=== PATIENT | female | born 1985 | race Caucasian/White ===

== ENCOUNTER 2017-12-08 03:26 | Emergency (ER) | payer BC ==
[2017-12-08] MEDS ORDERED: Ondansetron 4 MG Tab.DIS PO ONE (03:44)
--- NOTE | 2017-12-08 03:44 | EDM.PDOC ---
ED HPI GENERAL MEDICAL PROBLEM - General Chief Complaint: Gastrointestinal Problem Stated Complaint: VOMITING, NOT ABLE TO EAT OR DRINK Time Seen by Provider: 12/08/17 03:43 Source of Information: Reports: Patient History Limitations: Reports: No Limitations - History of Present Illness INITIAL COMMENTS - FREE TEXT/NARRATIVE: HISTORY AND PHYSICAL: History of present illness: 32-year-old female presented emergency department chief complaint of nausea and vomiting with associated headache. Patient states that 3 days ago, Wednesday 12/06, she woke with a headache that seemed to last throughout the day. She felt extremely tired throughout the day. Denies any fever but overall just felt exhausted. This continued up until today where she began to have some nausea with vomiting. States that she's vomited multiple times with greenish yellow vomitus. She reports mild fever maximum temp 100. She denies any nasal congestion, cough, diarrhea, abdominal pain, dysuria, hematuria or other signs of systemic infection. Patient does take tramadol on a daily basis for chronic left foot pain. 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 Dr. Rodriguez prescribes the Tramadol for this which she takes up to 300 mg a day when she is working. She also sees Dr. Grant approximately every 2 weeks for her foot issues. Patient currently denies any chest pain, palpitations, shortness breath, syncopal episodes, or focal neurologic deficits. Review of systems: As per history of present illness and below otherwise all systems reviewed and negative. Past medical history: As per history of present illness and as reviewed below otherwise noncontributory. Surgical history: As per history of present illness and as reviewed below otherwise noncontributory. Social history: No reported history of drug or alcohol abuse. Family history: As per history of present illness and as reviewed below otherwise noncontributory. Physical exam: HEENT: Atraumatic, normocephalic, pupils reactive, negative for conjunctival pallor or scleral icterus, mucous membranes moist, throat clear, neck supple, nontender, trachea midline. Lungs: Clear to auscultation, breath sounds equal bilaterally, chest nontender. Heart: S1S2, regular, negative for clicks, rubs, or JVD. Abdomen: Soft, nondistended, nontender. Negative for masses or hepatosplenomegaly. Negative for costovertebral tenderness. Pelvis: Stable nontender. Genitourinary: Deferred. Rectal: Deferred. Extremities: Atraumatic, negative for cords or calf pain. Neurovascular unremarkable. Neuro: Awake, alert, oriented. Cranial nerves II through XII unremarkable. Cerebellum unremarkable. Motor and sensory unremarkable throughout. Exam nonfocal. Diagnostics: Rapid Strep, Influenza Therapeutics: [Zofran 4 mg ODT, Toradol 60 mg IM x1] Impression: Viral gastroenteritis Plan: Patient's felt much improved after 4 mg of Zofran ODT and Toradol 60 mg IM 1. She remained afebrile throughout her stay and was discharged in good condition with a prescription for Zofran ODT 4 mg by mouth every 6 hours #12. She was instructed to follow-up with her primary care provider Dr. Rodriguez and return to the emergency department if she had a new or worsening symptoms. Left Lower Back Pain Score (Numeric/FACES): 9 - Related Data Allergies Allergy/AdvReac Type Severity Reaction Status Date / Time coconut oil Allergy Hives Verified 12/08/17 03:34 marijuana Allergy Anaphylactic Verified 12/08/17 03:34 Shock Home Meds: Home Meds traMADol [Ultram] 50 mg Q4HR 12/08/17 [History] Past Medical History [employer] History: Reports: - Infectious Disease History Infectious Disease History: Reports: Chicken Pox - Past Surgical History HEENT Surgical History: Reports: Naso-Sinus Surgery, Tonsillectomy, Other (See Below) Other HEENT Surgeries/Procedures: throat reconstruction Female Surgical History: Reports: Section Musculoskeletal Surgical History: Reports: Other (See Below) Other Musculoskeletal Surgeries/Procedures:: left foot surgery x2 Social & Family History - Family History Family Medical History: Noncontributory - Tobacco Use Smoking Status *Q: Never Smoker Second Hand Smoke Exposure: No - Caffeine Use Caffeine Use: Reports: Soda - Recreational Drug Use Recreational Drug Use: No ED ROS GENERAL - Review of Systems Review Of Systems: See Below ED EXAM, GENERAL - Physical Exam Exam: See Below Course - Vital Signs Last Recorded V/S: Last Vital Signs Temp 96.8 F 12/08/17 03:31 Pulse 112 H 12/08/17 04:11 Resp 16 12/08/17 04:11 BP 119/77 12/08/17 04:11 Pulse Ox 100 12/08/17 04:11 - Orders/Labs/Meds Orders: Active Orders 24 hr Category Date Time Status CULTURE STREP A CONFIRMATION [RM] Stat Lab 12/08/17 03:45 Results INFLUENZA A+B AG SCREEN [RM] Stat Lab 12/08/17 03:45 Ordered STREP SCRN A RAPID W CULT CONF [RM] Stat Lab 12/08/17 03:45 Ordered Meds: Medications Discontinued Medications Generic Name Dose Route Start Last Admin Trade Name Sara PRN Reason Stop Dose Admin Ketorolac Tromethamine 60 mg 12/08/17 03:54 12/08/17 04:02 Toradol IM 12/08/17 03:55 60 mg ONETIME ONE Administration Ondansetron HCl 4 mg 12/08/17 03:44 12/08/17 03:51 Zofran Odt PO 12/08/17 03:45 4 mg ONETIME ONE Administration Departure - Departure Time of Disposition: 04:14 Disposition: Home, Self-Care 01 Condition: Good Clinical Impression: Viral upper respiratory tract infection - Discharge Information Referrals: Brandon Rodriguez MD [Primary Care Provider] - Forms: ED Department Discharge Additional Instructions: My general discharge The following information is given to patients seen in the emergency department who are being discharged to home. This information is to outline your options for follow-up care. We provide all patients seen in our emergency department with a follow-up referral. The need for follow-up, as well as the timing and circumstances, are variable depending upon the specifics of your emergency department visit. If you don't have a primary care physician on staff, we will provide you with a referral. We always advise you to contact your personal physician following an emergency department visit to inform them of the circumstance of the visit and for follow-up with them and/or the need for any referrals to a consulting specialist. The emergency department will also refer you to a specialist when appropriate. This referral assures that you have the opportunity for follow-up care with a specialist. All of these measure are taken in an effort to provide you with optimal care, which includes your follow-up. Under all circumstances we always encourage you to contact your private physician who remains a resource for coordinating your care. When calling for follow-up care, please make the office aware that this follow-up is from your recent emergency room visit. If for any reason you are refused follow-up, please contact the [facility] Emergency Department at and asked to speak to the emergency department charge nurse. [address] [address] - My Orders Last 24 Hours: My Active Orders 12/08/17 03:45 CULTURE STREP A CONFIRMATION [RM] Stat INFLUENZA A+B AG SCREEN [RM] Stat STREP SCRN A RAPID W CULT CONF [RM] Stat - Assessment/Plan Last 24 Hours: My Active Orders 12/08/17 03:45 CULTURE STREP A CONFIRMATION [RM] Stat INFLUENZA A+B AG SCREEN [RM] Stat STREP SCRN A RAPID W CULT CONF [] Stat
[2017-12-08] MEDS ORDERED: Ketorolac 60 MG/2 ML SDV IM ONE (03:54)
== END 2017-12-08 04:20 | disposition home or self-care (01) ==
LOC: MW.ED 03:26
DX: A08.4 Viral intestinal infection, unspecified (principal); J06.9 Acute upper respiratory infection, unspecified; Z88.8 Allergy status to other drugs, medicaments and biological substances
CPT/HCPCS: 87081; 87804; 87880; 96372; 99284; A9270; J1885

== ENCOUNTER 2018-03-02 01:05 | Emergency (ER) | payer BC ==
--- NOTE | 2018-03-02 01:16 | EDM.PDOC ---
ED HPI GENERAL MEDICAL PROBLEM - General Chief Complaint: Flank Pain Stated Complaint: LOWER RIGHT BACK PAIN, ABDOMINAL PAIN Time Seen by Provider: 03/02/18 01:14 - History of Present Illness INITIAL COMMENTS - FREE TEXT/NARRATIVE: HISTORY AND PHYSICAL: History of present illness: Patient is a 32-year-old female sensory concern of right flank pain she states she's had this 1 day states she had a tactile fever yesterday she denies urinary frequency hesitancy or discomfort denies trauma denies numbness weakness incontinence or retention of bowel or bladder Review of systems: As per history of present illness and below otherwise all systems reviewed and negative. Past medical history: As per history of present illness and as reviewed below otherwise noncontributory. Surgical history: As per history of present illness and as reviewed below otherwise noncontributory. Social history: No reported history of drug or alcohol abuse. Family history: As per history of present illness and as reviewed below otherwise noncontributory. Physical exam: HEENT: Atraumatic, normocephalic, pupils reactive, negative for conjunctival pallor or scleral icterus, mucous membranes moist, throat clear, neck supple, nontender, trachea midline. Lungs: Clear to auscultation, breath sounds equal bilaterally, chest nontender. Heart: S1S2, regular, negative for clicks, rubs, or JVD. Abdomen: Soft, nondistended, nontender. Negative for masses or hepatosplenomegaly. Negative for costovertebral tenderness. Pelvis: Stable nontender. Genitourinary: Deferred. Rectal: Deferred. Extremities: Atraumatic, negative for cords or calf pain. Neurovascular unremarkable. Neuro: Awake, alert, oriented. Cranial nerves II through XII unremarkable. Cerebellum unremarkable. Motor and sensory unremarkable throughout. Exam nonfocal. Diagnostics: CBC CMP UA hCG Therapeutics: None Impression: 1 right flank pain Definitive disposition and diagnosis as appropriate pending reevaluation and review of above. - Related Data Allergies Allergy/AdvReac Type Severity Reaction Status Date / Time coconut oil Allergy Hives Verified 12/08/17 03:34 marijuana Allergy Anaphylactic Verified 12/08/17 03:34 Shock Home Meds: Home Meds traMADol [Ultram] 50 mg PO Q4HR PRN 12/08/17 [History] Pregabalin [Lyrica] 100 mg PO BID 03/02/18 [History] Past Medical History [employer] History: Reports: - Infectious Disease History Infectious Disease History: Reports: Chicken Pox - Past Surgical History HEENT Surgical History: Reports: Naso-Sinus Surgery, Tonsillectomy, Other (See Below) Other HEENT Surgeries/Procedures: throat reconstruction Female Surgical History: Reports: Section Musculoskeletal Surgical History: Reports: Other (See Below) Other Musculoskeletal Surgeries/Procedures:: left foot surgery x2 Social & Family History - Family History Family Medical History: Noncontributory - Caffeine Use Caffeine Use: Reports: Soda ED ROS GENERAL - Review of Systems Review Of Systems: ROS reveals no pertinent complaints other than HPI. ED EXAM, GENERAL - Physical Exam Exam: See Below (See dictation) Course - Vital Signs Last Recorded V/S: Last Vital Signs Temp 36.2 C 03/02/18 01:13 Pulse 122 H 03/02/18 01:13 Resp 17 03/02/18 01:13 BP 108/73 03/02/18 01:13 Pulse Ox 97 03/02/18 01:13 - Orders/Labs/Meds Orders: Active Orders 24 hr Category Date Time Status Abdomen Pelvis wo Cont [CT] Stat Exams 03/02/18 02:02 Ordered CULTURE URINE [RM] Stat Lab 03/02/18 03:20 Ordered HCG QUALITATIVE,URINE [URCHEM] Stat Lab 03/02/18 01:19 Ordered UA W/MICROSCOPIC [URIN] Stat Lab 03/02/18 01:19 Ordered Labs: Laboratory Tests 03/02/18 03/02/18 03/02/18 Range/Units 01:19 01:19 01:30 WBC 16.07 H (4.0-11.0) K/uL RBC 4.91 (4.30-5.90) M/uL Hgb 14.0 (12.0-16.0) g/dL Hct 41.0 (36.0-46.0) % MCV 83.5 (80.0-98.0) fL MCH 28.5 (27.0-32.0) pg MCHC 34.1 (31.0-37.0) g/dL RDW Std Deviation 40.8 (28.0-62.0) fl RDW Coeff of Guerline 14 (11.0-15.0) % Plt Count 280 (150-400) K/uL MPV 10.80 (7.40-12.00) fL Neut % (Auto) 79.3 (48.0-80.0) % Lymph % (Auto) 9.3 L (16.0-40.0) % [place] % (Auto) 11.3 (0.0-15.0) % Eos % (Auto) 0.0 (0.0-7.0) % Baso % (Auto) 0.1 (0.0-1.5) % Neut # (Auto) 12.7 H (1.4-5.7) K/uL Lymph # (Auto) 1.5 (0.6-2.4) K/uL [place] # (Auto) 1.8 H (0.0-0.8) K/uL Eos # (Auto) 0.0 (0.0-0.7) K/uL Baso # (Auto) 0.0 (0.0-0.1) K/uL Nucleated RBC % 0.0 /100WBC Nucleated RBCs # 0 K/uL Sodium (136-145) mmol/L Potassium (3.5-5.1) mmol/L Chloride (98-107) mmol/L Carbon Dioxide (21.0-32.0) mmol/L BUN (7.0-18.0) mg/dL Creatinine (0.6-1.0) mg/dL Est Cr Clr Drug Dosing mL/min Estimated GFR (MDRD) ml/min Glucose (74-106) mg/dL Calcium (8.5-10.1) mg/dL Total Bilirubin (0.2-1.0) mg/dL AST (15-37) IU/L ALT (14-63) IU/L Alkaline Phosphatase (46-116) U/L Total Protein (6.4-8.2) g/dL Albumin (3.4-5.0) g/dL Globulin (2.0-3.5) g/dL Albumin/Globulin Ratio (1.3-2.8) Urine Color YELLOW Urine Appearance SLT CLOUDY Urine pH 6.0 (5.0-8.0) Ur Specific [place] >= 1.030 (1.001-1.035) Urine Protein TRACE (NEGATIVE) mg/dL Urine Glucose (UA) NEGATIVE (NEGATIVE) mg/dL Urine Ketones 40 H (NEGATIVE) mg/dL Urine Occult Blood SMALL H (NEGATIVE) Urine Nitrite NEGATIVE (NEGATIVE) Urine Bilirubin SMALL H (NEGATIVE) Urine Urobilinogen 0.2 (<2.0) EU/dL Ur Leukocyte Esterase TRACE (NEGATIVE) Urine RBC 2-3 (0-2/HPF) Urine WBC 8-18 (0-5/HPF) Ur Epithelial Cells FEW (NONE-FEW) Amorphous Sediment FEW (NEGATIVE) Urine Bacteria 1+ H (NEGATIVE) Urine Mucus MODERATE (NONE-MOD) Urine Other Urine HCG, Qual NEGATIVE (NEGATIVE) 03/02/18 Range/Units 01:30 WBC (4.0-11.0) K/uL RBC (4.30-5.90) M/uL Hgb (12.0-16.0) g/dL Hct (36.0-46.0) % MCV (80.0-98.0) fL MCH (27.0-32.0) pg MCHC (31.0-37.0) g/dL RDW Std Deviation (28.0-62.0) fl RDW Coeff of Guerline (11.0-15.0) % Plt Count (150-400) K/uL MPV (7.40-12.00) fL Neut % (Auto) (48.0-80.0) % Lymph % (Auto) (16.0-40.0) % [place] % (Auto) (0.0-15.0) % Eos % (Auto) (0.0-7.0) % Baso % (Auto) (0.0-1.5) % Neut # (Auto) (1.4-5.7) K/uL Lymph # (Auto) (0.6-2.4) K/uL [place] # (Auto) (0.0-0.8) K/uL Eos # (Auto) (0.0-0.7) K/uL Baso # (Auto) (0.0-0.1) K/uL Nucleated RBC % /100WBC Nucleated RBCs # K/uL Sodium 134 L (136-145) mmol/L Potassium 3.9 (3.5-5.1) mmol/L Chloride 100 (98-107) mmol/L Carbon Dioxide 24.2 (21.0-32.0) mmol/L BUN 6 L (7.0-18.0) mg/dL Creatinine 1.1 H (0.6-1.0) mg/dL Est Cr Clr Drug Dosing 52.74 mL/min Estimated GFR (MDRD) 57.6 ml/min Glucose 130 H (74-106) mg/dL Calcium 9.5 (8.5-10.1) mg/dL Total Bilirubin 0.7 (0.2-1.0) mg/dL AST 7 L (15-37) IU/L ALT 13 L (14-63) IU/L Alkaline Phosphatase 72 (46-116) U/L Total Protein 8.0 (6.4-8.2) g/dL Albumin 3.7 (3.4-5.0) g/dL Globulin 4.3 H (2.0-3.5) g/dL Albumin/Globulin Ratio 0.9 L (1.3-2.8) Urine Color Urine Appearance Urine pH (5.0-8.0) Ur Specific [place] (1.001-1.035) Urine Protein (NEGATIVE) mg/dL Urine Glucose (UA) (NEGATIVE) mg/dL Urine Ketones (NEGATIVE) mg/dL Urine Occult Blood (NEGATIVE) Urine Nitrite (NEGATIVE) Urine Bilirubin (NEGATIVE) Urine Urobilinogen (<2.0) EU/dL Ur Leukocyte Esterase (NEGATIVE) Urine RBC (0-2/HPF) Urine WBC (0-5/HPF) Ur Epithelial Cells (NONE-FEW) Amorphous Sediment (NEGATIVE) Urine Bacteria (NEGATIVE) Urine Mucus (NONE-MOD) Urine Other Urine HCG, Qual (NEGATIVE) Departure - Departure Time of Disposition: 03:21 Disposition: Home, Self-Care 01 Condition: Good Clinical Impression: UTI, Urinary tract infectious disease, Pyelonephritis - Discharge Information *PRESCRIPTION DRUG MONITORING PROGRAM REVIEWED*: Not Applicable *COPY OF PRESCRIPTION DRUG MONITORING REPORT IN PATIENT LEONARD: Not Applicable Referrals: Brandon Rodriguez MD [Primary Care Provider] - Forms: ED Department Discharge Additional Instructions: The following information is given to patients seen in the emergency department who are being discharged to home. This information is to outline your options for follow-up care. We provide all patients seen in our emergency department with a follow-up referral. The need for follow-up, as well as the timing and circumstances, are variable depending upon the specifics of your emergency department visit. If you don't have a primary care physician on staff, we will provide you with a referral. We always advise you to contact your personal physician following an emergency department visit to inform them of the circumstance of the visit and for follow-up with them and/or the need for any referrals to a consulting specialist. The emergency department will also refer you to a specialist when appropriate. This referral assures that you have the opportunity for followup care with a specialist. All of these measure are taken in an effort to provide you with optimal care, which includes your followup. Under all circumstances we always encourage you to contact your private physician who remains a resource for coordinating your care. When calling for followup care, please make the office aware that this follow-up is from your recent emergency room visit. If for any reason you are refused follow-up, please contact the [facility] emergency department at and asked to speak to the emergency department charge nurse. Keflex is prescribed Motrin/Tylenol as directed push fluids follow-up with private medical doctor return as needed as discussed - My Orders Last 24 Hours: My Active Orders 03/02/18 01:19 HCG QUALITATIVE,URINE [URCHEM] Stat UA W/MICROSCOPIC [URIN] Stat 03/02/18 02:02 Abdomen Pelvis wo Cont [CT] Stat 03/02/18 03:20 CULTURE URINE [RM] Stat - Assessment/Plan Last 24 Hours: My Active Orders 03/02/18 01:19 HCG QUALITATIVE,URINE [URCHEM] Stat UA W/MICROSCOPIC [URIN] Stat 03/02/18 02:02 Abdomen Pelvis wo Cont [CT] Stat 03/02/18 03:20 CULTURE URINE [RM] Stat
[2018-03-02] MEDS ORDERED: cefTRIAXone 1,000 MG in Lidocaine 1% 4 ML IM ONE (03:23)
--- NOTE | 2018-03-02 20:59 | CT ---
EXAM DATE: 03/02/18 PATIENT'S AGE: 32 Patient: CHUNG CARDENAS Facility: [place], [place] Site . Site : 1985 Study: CT Abdomen/Pelvis [id number]/[id number] 2:42:06 AM Ordering Physician: Chrissy Dill Final Report: INDICATION: Right flank pain TECHNIQUE: CT abdomen and pelvis without contrast. COMPARISON: None FINDINGS: Lower chest: Unremarkable. Liver: Unremarkable. Spleen: Unremarkable. Pancreas: Unremarkable. Gallbladder and bile ducts: Unremarkable. Adrenal glands: Unremarkable. Kidneys: No renal stone or hydronephrosis. Mild fat stranding around the right kidney. GI tract: Unremarkable. Appendix is normal. Vascular structures: Unremarkable. Lymph nodes: Unremarkable. Miscellaneous: No free air. Pelvic Organs: Trace free fluid, likely physiologic. Bones: Unremarkable for age. IMPRESSION: Mild fat stranding around the right kidney. No renal stone or hydronephrosis. This can be seen with pyelonephritis or recently passed renal stone. Please note that all CT scans at this facility use dose modulation, iterative reconstruction, and/or weight-based dosing when appropriate to reduce radiation dose to as low as reasonably achievable. Dictated by Debra Romero MD @ Mar 02 2018 3:03AM (Electronic Signature) MTDD
== END 2018-03-02 03:46 | disposition home or self-care (01) ==
LOC: MW.ED 01:05
DX: N12 Tubulo-interstitial nephritis, not specified as acute or chronic (principal); N39.0 Urinary tract infection, site not specified; Z91.09 Other allergy status, other than to drugs and biological substances
CPT/HCPCS: 36415; 74176; 80053; 81001; 81025; 85025; 87086; 87088; 87186; 96372; 99284; J0696; J2001; 99283

== ENCOUNTER 2018-03-04 20:14 | Emergency (ER) | payer BC ==
--- NOTE | 2018-03-04 20:23 | EDM.PDOC ---
ED HPI GENERAL MEDICAL PROBLEM - General Chief Complaint: Genitourinary Problem Stated Complaint: KIDNEY INFECTION Time Seen by Provider: 03/04/18 20:23 Source of Information: Reports: Patient History Limitations: Reports: No Limitations - History of Present Illness INITIAL COMMENTS - FREE TEXT/NARRATIVE: HISTORY AND PHYSICAL: History of present illness: 32-year-old female presenting to the emergency department with chief complaint of headache and general malaise with recent history of kidney infection. Patient states that she was here on 03/02/18 and diagnosed with a right kidney infection. At that time she was given an intramuscular antibiotic injection as well as an antibiotic to go home with. She does not know the antibiotic. Over the past 2 days states she has not had any significant improvement. She still having headache as well as some right flank pain. Denies any significant fevers. She denies any hematuria, dysuria, retention, or other bladder issues. States that she did not have urinary symptoms initially when she was diagnosed. 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 2100: CBC unremarkable no white count. Lactate normal as well as Urine analysis. 2130: CMP unremarkable with no significant signs of renal pathology. Review of systems: As per history of present illness and below otherwise all systems reviewed and negative. Past medical history: As per history of present illness and as reviewed below otherwise noncontributory. Surgical history: As per history of present illness and as reviewed below otherwise noncontributory. Social history: No reported history of drug or alcohol abuse. Family history: As per history of present illness and as reviewed below otherwise noncontributory. Physical exam: HEENT: Atraumatic, normocephalic, pupils reactive, negative for conjunctival pallor or scleral icterus, mucous membranes moist, throat clear, neck supple, nontender, trachea midline. Lungs: Clear to auscultation, breath sounds equal bilaterally, chest nontender. Heart: S1S2, regular, negative for clicks, rubs, or JVD. Abdomen: Soft, nondistended, nontender. Negative for masses or hepatosplenomegaly. Mild Right costovertebral tenderness. Pelvis: Stable nontender. Genitourinary: Deferred. Rectal: Deferred. Extremities: Atraumatic, negative for cords or calf pain. Neurovascular unremarkable. Neuro: Awake, alert, oriented. Cranial nerves II through XII unremarkable. Cerebellum unremarkable. Motor and sensory unremarkable throughout. Exam nonfocal. Diagnostics: CBC, CMP, lactate, UA/UC Therapeutics: 1 L normal saline Impression: Right flank pain History of right pyelonephritis Plan: Please see H&P. CBC, CMP, lactate, UA were all unremarkable. I discussed this with the patient and instructed her to continue taking the antibiotics that she received for her kidney infection previously and follow-up with primary care provider. Also instructed to return to emergency department if she had any new or worsening symptoms. Definitive disposition and diagnosis as appropriate pending reevaluation and review of above. 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: Musculoskeletal History: Reports: None - Infectious Disease History Infectious Disease History: Reports: Chicken Pox - Past Surgical History HEENT Surgical History: Reports: Naso-Sinus Surgery, Tonsillectomy, Other (See Below) Other HEENT Surgeries/Procedures: throat reconstruction Female Surgical History: Reports: Section Musculoskeletal Surgical History: Reports: Other (See Below) Other Musculoskeletal Surgeries/Procedures:: left foot surgery x2 Social & Family History - Family History Family Medical History: Noncontributory - Caffeine Use Caffeine Use: Reports: Soda ED ROS GENERAL - Review of Systems Review Of Systems: ROS reveals no pertinent complaints other than HPI. ED EXAM, GENERAL - Physical Exam Exam: See Below Course - Vital Signs Last Recorded V/S: Last Vital Signs Temp 96.9 F 03/04/18 20:33 Pulse 100 03/04/18 20:33 Resp 18 03/04/18 20:33 BP 115/57 L 03/04/18 20:33 Pulse Ox 97 03/04/18 20:33 - Orders/Labs/Meds Orders: Active Orders 24 hr Category Date Time Status CULTURE URINE [RM] Stat Lab 03/04/18 20:31 Received UA W/MICROSCOPIC [URIN] Stat Lab 03/04/18 20:31 Ordered Labs: Laboratory Tests 03/04/18 03/04/18 03/04/18 Range/Units 20:31 20:50 20:50 WBC 6.29 (4.0-11.0) K/uL RBC 4.54 (4.30-5.90) M/uL Hgb 12.9 (12.0-16.0) g/dL Hct 37.6 (36.0-46.0) % MCV 82.8 (80.0-98.0) fL MCH 28.4 (27.0-32.0) pg MCHC 34.3 (31.0-37.0) g/dL RDW Std Deviation 39.5 (28.0-62.0) fl RDW Coeff of Guerline 13 (11.0-15.0) % Plt Count 250 (150-400) K/uL MPV 10.90 (7.40-12.00) fL Neut % (Auto) 57.7 (48.0-80.0) % Lymph % (Auto) 27.5 (16.0-40.0) % Kay % (Auto) 12.9 (0.0-15.0) % Eos % (Auto) 1.6 (0.0-7.0) % Baso % (Auto) 0.3 (0.0-1.5) % Neut # (Auto) 3.6 (1.4-5.7) K/uL Lymph # (Auto) 1.7 (0.6-2.4) K/uL Kay # (Auto) 0.8 (0.0-0.8) K/uL Eos # (Auto) 0.1 (0.0-0.7) K/uL Baso # (Auto) 0.0 (0.0-0.1) K/uL Nucleated RBC % 0.0 /100WBC Nucleated RBCs # 0 K/uL Lactate 1.2 (0.20-2.00) mmol/L Sodium (136-145) mmol/L Potassium (3.5-5.1) mmol/L Chloride (98-107) mmol/L Carbon Dioxide (21.0-32.0) mmol/L BUN (7.0-18.0) mg/dL Creatinine (0.6-1.0) mg/dL Est Cr Clr Drug Dosing mL/min Estimated GFR (MDRD) ml/min Glucose (74-106) mg/dL Calcium (8.5-10.1) mg/dL Total Bilirubin (0.2-1.0) mg/dL AST (15-37) IU/L ALT (14-63) IU/L Alkaline Phosphatase (46-116) U/L Total Protein (6.4-8.2) g/dL Albumin (3.4-5.0) g/dL Globulin (2.0-3.5) g/dL Albumin/Globulin Ratio (1.3-2.8) Urine Color YELLOW Urine Appearance HAZY Urine pH 6.0 (5.0-8.0) Ur Specific [place] >= 1.030 (1.001-1.035) Urine Protein NEGATIVE (NEGATIVE) mg/dL Urine Glucose (UA) NEGATIVE (NEGATIVE) mg/dL Urine Ketones NEGATIVE (NEGATIVE) mg/dL Urine Occult Blood SMALL H (NEGATIVE) Urine Nitrite NEGATIVE (NEGATIVE) Urine Bilirubin NEGATIVE (NEGATIVE) Urine Urobilinogen 0.2 (<2.0) EU/dL Ur Leukocyte Esterase NEGATIVE (NEGATIVE) Urine RBC 2-4 (0-2/HPF) Urine WBC 1-3 (0-5/HPF) Ur Epithelial Cells MODERATE (NONE-FEW) Urine Bacteria FEW (NEGATIVE) Urine Mucus LIGHT (NONE-MOD) 03/04/18 Range/Units 20:50 WBC (4.0-11.0) K/uL RBC (4.30-5.90) M/uL Hgb (12.0-16.0) g/dL Hct (36.0-46.0) % MCV (80.0-98.0) fL MCH (27.0-32.0) pg MCHC (31.0-37.0) g/dL RDW Std Deviation (28.0-62.0) fl RDW Coeff of Guerline (11.0-15.0) % Plt Count (150-400) K/uL MPV (7.40-12.00) fL Neut % (Auto) (48.0-80.0) % Lymph % (Auto) (16.0-40.0) % Kay % (Auto) (0.0-15.0) % Eos % (Auto) (0.0-7.0) % Baso % (Auto) (0.0-1.5) % Neut # (Auto) (1.4-5.7) K/uL Lymph # (Auto) (0.6-2.4) K/uL Kay # (Auto) (0.0-0.8) K/uL Eos # (Auto) (0.0-0.7) K/uL Baso # (Auto) (0.0-0.1) K/uL Nucleated RBC % /100WBC Nucleated RBCs # K/uL Lactate (0.20-2.00) mmol/L Sodium 137 (136-145) mmol/L Potassium 4.2 (3.5-5.1) mmol/L Chloride 103 (98-107) mmol/L Carbon Dioxide 29.0 (21.0-32.0) mmol/L BUN 10 (7.0-18.0) mg/dL Creatinine 0.9 (0.6-1.0) mg/dL Est Cr Clr Drug Dosing 64.46 mL/min Estimated GFR (MDRD) > 60.0 ml/min Glucose 91 (74-106) mg/dL Calcium 9.1 (8.5-10.1) mg/dL Total Bilirubin 0.1 L (0.2-1.0) mg/dL AST 14 L (15-37) IU/L ALT 13 L (14-63) IU/L Alkaline Phosphatase 64 (46-116) U/L Total Protein 7.4 (6.4-8.2) g/dL Albumin 3.2 L (3.4-5.0) g/dL Globulin 4.2 H (2.0-3.5) g/dL Albumin/Globulin Ratio 0.8 L (1.3-2.8) Urine Color Urine Appearance Urine pH (5.0-8.0) Ur Specific [place] (1.001-1.035) Urine Protein (NEGATIVE) mg/dL Urine Glucose (UA) (NEGATIVE) mg/dL Urine Ketones (NEGATIVE) mg/dL Urine Occult Blood (NEGATIVE) Urine Nitrite (NEGATIVE) Urine Bilirubin (NEGATIVE) Urine Urobilinogen (<2.0) EU/dL Ur Leukocyte Esterase (NEGATIVE) Urine RBC (0-2/HPF) Urine WBC (0-5/HPF) Ur Epithelial Cells (NONE-FEW) Urine Bacteria (NEGATIVE) Urine Mucus (NONE-MOD) Meds: Medications Discontinued Medications Generic Name Dose Route Start Last Admin Trade Name Sara PRN Reason Stop Dose Admin Sodium Chloride 1,000 mls @ 999 mls/hr 03/04/18 20:33 03/04/18 20:57 Normal Saline IV 03/04/18 21:33 999 mls/hr STAT ONE Administration Departure - Departure Time of Disposition: 21:36 Disposition: Home, Self-Care 01 Condition: Good Clinical Impression: Right flank pain, Malaise and fatigue, History of pyelonephritis - Discharge Information Referrals: PCP,None [Primary Care Provider] - Forms: ED Department Discharge Additional Instructions: My general discharge The following information is given to patients seen in the emergency department who are being discharged to home. This information is to outline your options for follow-up care. We provide all patients seen in our emergency department with a follow-up referral. The need for follow-up, as well as the timing and circumstances, are variable depending upon the specifics of your emergency department visit. If you don't have a primary care physician on staff, we will provide you with a referral. We always advise you to contact your personal physician following an emergency department visit to inform them of the circumstance of the visit and for follow-up with them and/or the need for any referrals to a consulting specialist. The emergency department will also refer you to a specialist when appropriate. This referral assures that you have the opportunity for follow-up care with a specialist. All of these measure are taken in an effort to provide you with optimal care, which includes your follow-up. Under all circumstances we always encourage you to contact your private physician who remains a resource for coordinating your care. When calling for follow-up care, please make the office aware that this follow-up is from your recent emergency room visit. If for any reason you are refused follow-up, please contact the [facility] Emergency Department at and asked to speak to the emergency department charge nurse. [facility] Primary Care [address] [place] [id number] [facility] [address] [place] [address] Follow-up with primary care provider as we discussed. Continued taking antibiotics as prescribed. Return to emergency department if any new or worsening symptoms. - My Orders Last 24 Hours: My Active Orders 03/04/18 20:31 CULTURE URINE [RM] Stat UA W/MICROSCOPIC [URIN] Stat - Assessment/Plan Last 24 Hours: My Active Orders 03/04/18 20:31 CULTURE URINE [RM] Stat UA W/MICROSCOPIC [URIN] Stat
[2018-03-04] MEDS ORDERED: Sodium Chloride 0.9% 1,000 ML IV ONE (20:33)
[2018-03-04 21:30] LABS: CHLORIDE,CL 103 mmol/L (98-107); SODIUM,NA 137 mmol/L (136-145)
== END 2018-03-04 21:57 | disposition home or self-care (01) ==
LOC: MW.ED 20:14
DX: R10.9 Unspecified abdominal pain (principal); R53.83 Other fatigue; R53.81 Other malaise; Z91.018 Allergy to other foods; Z87.898 Personal history of other specified conditions
CPT/HCPCS: 36415; 80053; 81001; 83605; 85025; 87086; 96360; 99284; J7040; 99283

== ENCOUNTER 2018-09-16 10:42 | Emergency (ER) | payer OTHER, BC ==
--- NOTE | 2018-09-16 10:46 | EDM.PDOC ---
ED HPI GENERAL MEDICAL PROBLEM - General Stated Complaint: INJURED ARMS Time Seen by Provider: 09/16/18 10:46 Source of Information: Reports: Patient History Limitations: Reports: No Limitations - History of Present Illness INITIAL COMMENTS - FREE TEXT/NARRATIVE: HISTORY AND PHYSICAL: History of present illness: Patient is a 33-year-old female who presents to the emergency room today with complaints of right forearm and hand pain after falling on the ice this morning at approximately 10:30. She does have a superficial scratch to the mid ulnar surface of her forearm with some soft tissue swelling. She denies hitting her head or any loss of consciousness. She denies any fever, chills, chest pain, shortness of breath or cough. Denies any GI or symptoms. She denies any chance of . Review of systems: As per history of present illness and below otherwise all systems reviewed and negative. Past medical history: As per history of present illness and as reviewed below otherwise noncontributory. Surgical history: As per history of present illness and as reviewed below otherwise noncontributory. Social history: See social history for further information Family history: As per history of present illness and as reviewed below otherwise noncontributory. Physical exam: General: Well-developed and well nourished 33-year-old female. Alert and oriented. Nontoxic appearing and in no acute distress. HEENT: Atraumatic, normocephalic, pupils equal and reactive bilaterally, negative for conjunctival pallor or scleral icterus, mucous membranes moist, TMs normal bilaterally, throat clear, neck supple, nontender, trachea midline. No drooling or trismus noted. No meningeal signs. No hot potato voice noted. Lungs: Clear to auscultation, breath sounds equal bilaterally, chest nontender. Heart: S1S2, regular rate and rhythm without overt murmur Abdomen: Soft, nondistended, nontender. Negative for masses or hepatosplenomegaly. Negative for costovertebral tenderness. Pelvis: Stable nontender. Genitourinary: Deferred. Rectal: Deferred. Skin: Intact, warm, dry. No lesions or rashes noted. Extremities: Moves all extremities per self without difficulty or deficits. She does have tenderness with palpation along the ulnar surface of her mid forearm, does have a localized area of soft tissue swelling along with a superficial scratch approximately 3 cm in length. Denies any pain or discomfort with palpation of the clavicle, scapula, humerus, elbow. She does have full range of motion at the fingers, wrist and elbow. Strong radial pulse, cap refill less than 3 seconds. Neurovascular unremarkable. Neuro: Awake, alert, oriented. Cranial nerves II through XII unremarkable. Cerebellum unremarkable. Motor and sensory unremarkable throughout. Exam nonfocal. Notes: I did offer the patient Toradol IM, she declines. She states that she takes tramadol at home routinely does not or anything at this time. X-ray shows no acute fracture, dislocation or joint effusion. We'll place her in an Calin wrap and give sling for comfort purposes. Encouraged her to follow-up with the orthopedic provider if she continued to have pain. Supportive care measures were reviewed and discussed. Voices understanding and is agreeable to plan of care. Denies any further questions or concerns at this time. Diagnostics: Forearm x-ray Therapeutics: Bacitracin, wound care, Tdap Prescription: None Impression: Right forearm injury Abrasion Plan: 1. Keep the abrasions to areas clean and dry. May apply bacitracin over the next 1-2 days. Rest, ice, elevate the painful extremity as able. Use the sling for comfort purposes as we discussed. 2. Tylenol and/or ibuprofen as needed for pain management. You may use the tramadol that you have at home as well. Take as directed. 3. Follow-up with your primary care provider or orthopedic provider as we discussed. 4. Return to the ED as needed and as discussed. Definitive disposition and diagnosis as appropriate pending reevaluation and review of above. 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: Musculoskeletal History: Reports: None Psychiatric History: Reports: None - Infectious Disease History Infectious Disease History: Reports: Chicken Pox - Past Surgical History HEENT Surgical History: Reports: Naso-Sinus Surgery, Tonsillectomy, Other (See Below) Other HEENT Surgeries/Procedures: throat reconstruction Female Surgical History: Reports: Section Musculoskeletal Surgical History: Reports: Other (See Below) Other Musculoskeletal Surgeries/Procedures:: left foot surgery x2 Social & Family History - Family History Family Medical History: Noncontributory - Caffeine Use Caffeine Use: Reports: Soda Review of Systems - Review of Systems Review Of Systems: ROS reveals no pertinent complaints other than HPI. ED EXAM, GENERAL - Physical Exam Exam: See Below (See dictation) Course - Vital Signs Last Recorded V/S: Last Vital Signs Temp 98.5 F 09/16/18 10:54 Pulse 101 H 09/16/18 10:54 Resp 17 09/16/18 10:54 BP 115/87 09/16/18 10:54 Pulse Ox 98 09/16/18 10:54 - Orders/Labs/Meds Orders: Active Orders 24 hr Category Date Time Status Communication Order [RC] STAT Care 09/16/18 11:05 Active Vaccines to be Administered [RC] PER UNIT ROUTINE Care 09/16/18 11:05 Active DME for Discharge [COMM] Stat Oth 09/16/18 11:53 Ordered Meds: Medications Discontinued Medications Generic Name Dose Route Start Last Admin Trade Name Sara PRN Reason Stop Dose Admin Bacitracin 1 dose 09/16/18 11:05 09/16/18 11:13 Bacitracin Oint 1 Gm TOP 09/16/18 11:06 1 dose ONETIME ONE Administration Diphtheria/Tetanus/Acell Pertussis 0.5 ml 09/16/18 11:05 09/16/18 11:15 Adacel IM 09/16/18 11:06 0.5 ml .ONCE ONE Administration Departure - Departure Time of Disposition: 11:54 Disposition: Home, Self-Care 01 Clinical Impression: Abrasion Right forearm injury Qualifiers: Encounter type: initial encounter Qualified Code(s): S59.911A - Unspecified injury of right forearm, initial encounter - Discharge Information Referrals: PCP,Unknown [Primary Care Provider] - Additional Instructions: The following information is given to patients seen in the emergency department who are being discharged to home. This information is to outline your options for follow-up care. We provide all patients seen in our emergency department with a follow-up referral. The need for follow-up, as well as the timing and circumstances, are variable depending upon the specifics of your emergency department visit. If you don't have a primary care physician on staff, we will provide you with a referral. We always advise you to contact your personal physician following an emergency department visit to inform them of the circumstance of the visit and for follow-up with them and/or the need for any referrals to a consulting specialist. The emergency department will also refer you to a specialist when appropriate. This referral assures that you have the opportunity for follow-up care with a specialist. All of these measure are taken in an effort to provide you with optimal care, which includes your follow-up. Under all circumstances we always encourage you to contact your private physician who remains a resource for coordinating your care. When calling for follow-up care, please make the office aware that this follow-up is from your recent emergency room visit. If for any reason you are refused follow-up, please contact the [facility] Emergency Department at and asked to speak to the emergency department charge nurse. [facility] Primary [facility] [address] [place] [address] [place] [address] [facility] Special[facility] - [facility] Professional Building [address] [place] [address], [address] [place] [address] 1. Keep the abrasions to areas clean and dry. May apply bacitracin over the next 1-2 days. Rest, ice, elevate the painful extremity as able. Use the sling for comfort purposes as we discussed. 2. Tylenol and/or ibuprofen as needed for pain management. You may use the tramadol that you have at home as well. Take as directed. 3. Follow-up with your primary care provider or orthopedic provider as we discussed. 4. Return to the ED as needed and as discussed. - My Orders Last 24 Hours: My Active Orders 09/16/18 11:05 Communication Order [RC] STAT Vaccines to be Administered [RC] PER UNIT ROUTINE 09/16/18 11:53 DME for Discharge [COMM] Stat - Assessment/Plan Last 24 Hours: My Active Orders 09/16/18 11:05 Communication Order [RC] STAT Vaccines to be Administered [RC] PER UNIT ROUTINE 09/16/18 11:53 DME for Discharge [COMM] Stat
[2018-09-16] MEDS ORDERED: Diphtheria,Pertussis(Acell),Tetanus Vaccine 0.5 ML Syringe IM ONE (11:05)
[2018-09-16] MEDS ORDERED: Bacitracin Oint 1 GM U/D Packet TOP ONE (11:05)
--- NOTE | 2018-09-16 11:52 | CR ---
INDICATION: Pain following injury. TECHNIQUE: Two views right forearm. FINDINGS: No acute fracture or dislocation. No joint effusion at the elbow. No radiopaque foreign body in the soft tissues. IMPRESSION: Negative right forearm. Dictated by Ryan Gracia MD @ Sep 16 2018 11:49AM Signed by Dr. Ryan Gracia @ Sep 16 2018 11:49AM
== END 2018-09-16 12:05 | disposition home or self-care (01) ==
LOC: MW.ED 10:42
DX: S50.811A Abrasion of right forearm, initial encounter (principal); W00.0XXA Fall on same level due to ice and snow, initial encounter; Z23 Encounter for immunization
CPT/HCPCS: 73090-26-RT; 73090-RT; 90715; 99283-25; 99284

== ENCOUNTER 2019-11-02 11:51 | Emergency (ER) | payer BC, OTHER ==
[2019-11-02] MEDS ORDERED: diphenhydrAMINE 50 MG Cap PO ONE (11:59)
[2019-11-02] MEDS ORDERED: methylPREDNISolone Sodium Succinate 125 MG/2 ML SDV IM ONE (11:59)
--- NOTE | 2019-11-02 12:15 | EDM.PDOC ---
ED HPI GENERAL MEDICAL PROBLEM - General Chief Complaint: Allergic Reaction Stated Complaint: ALLERGIC REACTION Time Seen by Provider: 11/02/19 11:56 Source of Information: Reports: Patient History Limitations: Reports: No Limitations - History of Present Illness INITIAL COMMENTS - FREE TEXT/NARRATIVE: HISTORY AND PHYSICAL: History of present illness: Patient is a 34-year-old female who presents to the emergency room with complaints of shortness of breath. 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 She has had allergic reaction in the past 2 exposure to marijuana smoke. With her previous allergic reaction she had to receive Benadryl and Solu-Medrol due to her oxygen sat declining. After this exposure she had the sensation of shortness of breath and that her throat is feeling tight. She immediately came to the emergency room. Patient denies any fever, chills, headache, change in vision, drooling or difficulty swallowing. Denies any chest pain, back pain or cough. Denies any abdominal pain, nausea, vomiting, diarrhea, constipation or dysuria. Denies any chance of . patient has been eating and drinking appropriately. Review of systems: As per history of present illness and below otherwise all systems reviewed and negative. Past medical history: As per history of present illness and as reviewed below otherwise noncontributory. Surgical history: As per history of present illness and as reviewed below otherwise noncontributory. Social history: See social history for further information Family history: As per history of present illness and as reviewed below otherwise noncontributory. Physical exam: General: Well developed and well nourished 34-year-old female. Alert and oriented. Nontoxic-appearing and in no acute distress. HEENT: Atraumatic, normocephalic, pupils equal and reactive bilaterally, negative for conjunctival pallor or scleral icterus, mucous membranes moist, TMs normal bilaterally, throat clear, neck supple, nontender, trachea midline. No drooling or trismus noted. No meningeal signs. No hot potato voice noted. Lungs: Clear to auscultation, breath sounds equal bilaterally, chest nontender. No work of breathing. Heart: S1S2, regular rate and rhythm without overt murmur Abdomen: Soft, nondistended, nontender. Negative for masses or hepatosplenomegaly. Negative for costovertebral tenderness. Skin: Intact, warm, dry. No lesions or rashes noted. Extremities: Atraumatic, moves all extremities per self without difficulty or deficits, negative for cords or calf pain. Neurovascular unremarkable. Neuro: Awake, alert, oriented. Cranial nerves II through XII unremarkable. Cerebellum unremarkable. Motor and sensory unremarkable throughout. Exam nonfocal. Notes: Patient's lung sounds are clear, oxygen saturation is 100% and oral airway is intact without any soft tissue swelling. She states she required medications with her last exposure to marijuana and is concerned she needs them again today. She was placed on oxygen for comfort. We will give her Solu-Medrol IM and oral Benadryl and continue to monitor her over the next hour. Vital signs have remained stable. Physical exam remains WNL. Supportive care measures were reviewed and discussed. Voices understanding and is agreeable to plan of care. Denies any further questions or concerns at this time. Diagnostics: None Therapeutics: Solu-Medrol IM, Benadryl Prescription: None Impression: Encounter for medical screening exam Allergic reaction Plan: 1. Avoid triggers (marijuana smoke). 2. While symptomatic continue to routinely take Benadryl as directed. You had Benadryl and Solumedrol (steroid) while here. 3. Please follow up with your Primary care doctor as we discussed. Return to the ED as needed and as discussed. Definitive disposition and diagnosis as appropriate pending reevaluation and review of above. Left Lower Leg Pain Score (Numeric/FACES): 5 - Related Data Allergies Allergy/AdvReac Type Severity Reaction Status Date / Time coconut oil Allergy Hives Verified 11/02/19 11:58 marijuana Allergy Anaphylactic Verified 11/02/19 11:58 Shock Home Meds: Home Meds . 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: Musculoskeletal History: Reports: None Psychiatric History: Reports: None - Infectious Disease History Infectious Disease History: Reports: Chicken Pox - Past Surgical History HEENT Surgical History: Reports: Naso-Sinus Surgery, Tonsillectomy, Other (See Below) Other HEENT Surgeries/Procedures: throat reconstruction Female Surgical History: Reports: Section Musculoskeletal Surgical History: Reports: Other (See Below) Other Musculoskeletal Surgeries/Procedures:: left foot surgery x2 Social & Family History - Family History Family Medical History: Noncontributory - Caffeine Use Caffeine Use: Reports: Soda ED ROS ALLERGIC REACTION - Review of Systems Review Of Systems: Comprehensive ROS is negative, except as noted in HPI. ED EXAM GENERAL NO PERIP PULSE - Physical Exam Exam: See Below (See dictation) Course - Vital Signs Last Recorded V/S: Last Vital Signs Temp 98.2 F 11/02/19 11:58 Pulse 104 H 11/02/19 11:58 Resp 22 H 11/02/19 11:58 BP 131/80 11/02/19 11:58 Pulse Ox 100 11/02/19 11:58 - Orders/Labs/Meds Meds: Medications Discontinued Medications Generic Name Dose Route Start Last Admin Trade Name Sara PRN Reason Stop Dose Admin Diphenhydramine HCl 50 mg 11/02/19 11:59 11/02/19 12:18 Benadryl PO 11/02/19 12:00 50 mg ONETIME ONE Administration Methylprednisolone Sodium Succinate 125 mg 11/02/19 11:59 11/02/19 12:18 Solu-Medrol IM 11/02/19 12:00 125 mg ONETIME ONE Administration Departure - Departure Time of Disposition: 12:37 Disposition: Home, Self-Care 01 Clinical Impression: Encounter for medical screening examination Allergic reaction Qualifiers: Encounter type: initial encounter Qualified Code(s): T78.40XA - Allergy, unspecified, initial encounter - Discharge Information Instructions: Shortness of Breath, Adult, [id number] Referrals: PCP,Unknown [Primary Care Provider] - Additional Instructions: The following information is given to patients seen in the emergency department who are being discharged to home. This information is to outline your options for follow-up care. We provide all patients seen in our emergency department with a follow-up referral. The need for follow-up, as well as the timing and circumstances, are variable depending upon the specifics of your emergency department visit. If you don't have a primary care physician on staff, we will provide you with a referral. We always advise you to contact your personal physician following an emergency department visit to inform them of the circumstance of the visit and for follow-up with them and/or the need for any referrals to a consulting specialist. The emergency department will also refer you to a specialist when appropriate. This referral assures that you have the opportunity for follow-up care with a specialist. All of these measure are taken in an effort to provide you with optimal care, which includes your follow-up. Under all circumstances we always encourage you to contact your private physician who remains a resource for coordinating your care. When calling for follow-up care, please make the office aware that this follow-up is from your recent emergency room visit. If for any reason you are refused follow-up, please contact the [facility] Emergency Department at and asked to speak to the emergency department charge nurse. [facility] [address] [place] [address] [facility] [address] [place] [id number] 1. Avoid triggers (marijuana smoke). 2. While symptomatic continue to routinely take Benadryl as directed. You had Benadryl and Solumedrol (steroid) while here. 3. Please follow up with your Primary care doctor as we discussed. Return to the ED as needed and as discussed. Sepsis Event Note - Focused Exam Vital Signs: Vital Signs Temp Pulse Resp BP Pulse Ox 11/02/19 11:58 98.2 F 104 H 22 H 131/80 100 Date Exam was Performed: 11/02/19 Time Exam was Performed: 12:37
== END 2019-11-02 12:41 | disposition home or self-care (01) ==
LOC: MW.ED 11:51
DX: R06.02 Shortness of breath (principal); Z88.5 Allergy status to narcotic agent; Z91.09 Other allergy status, other than to drugs and biological substances; T40.7X5A Adverse effect of cannabis (derivatives), initial encounter
CPT/HCPCS: 96372; 99284; A9270; J2930; 99282